=== PATIENT | male | born 1960 | race African-American/Black ===

== ENCOUNTER 2016-09-08 18:05 | Inpatient (IN) | payer OTHER ==
[~2016-09-08] VITALS: Ht 188 cm; Wt 109.1 kg
[2016-09-08] MEDS ORDERED: CLON0.2T PO (19:46)
[2016-09-08] MEDS ORDERED: ALLO100T30 PO (19:46)
[2016-09-08] MEDS ORDERED: LOSA100T6 PO (19:46)
[2016-09-08] MEDS ORDERED: PARO20TA4 PO (19:46)
[2016-09-08] MEDS ORDERED: AMLO10TA2 PO (19:46)
[2016-09-08] MEDS ORDERED: METO200T3 PO (19:46)
[2016-09-08] MEDS ORDERED: SPIR50TA2 PO (19:46)
[2016-09-08] MEDS ORDERED: SIMV20TA3 PO (19:46)
[2016-09-08] MEDS ORDERED: GLIP5TAB10 PO (19:46)
[2016-09-08] MEDS ORDERED: ASPI325T80 PO (19:46)
[2016-09-08] MEDS ORDERED: HYDR-3343 PO (19:46)
[2016-09-08] MEDS ORDERED: DOCUSATE CALCIUM 240 MG CAPSULE PO PRN (20:00)
[2016-09-08] MEDS ORDERED: ACETAMINOPHEN 650 MG/20.3 ML UDC PO PRN (20:00)
[2016-09-08] MEDS ORDERED: ALUMINUM/MAG/SIMETHICONE 30 ML UDC PO PRN (20:00)
[2016-09-08] MEDS: SODIUM CHLORIDE 0.9% 1,000 ML IV SCH (22:23)
[2016-09-08] MEDS: FAMOTIDINE 20 MG TABLET PO SCH (22:24)
[2016-09-08] MEDS: SIMVASTATIN 20 MG TABLET PO SCH (22:24)
[2016-09-08] MEDS: HEPARIN 5,000 UNITS/ML, 1ML SQ SCH (22:24)
[2016-09-08 22:50] VITALS: BP 153/97
[2016-09-09] VITALS (9 sets, daily range): BP systolic 150–202; BP diastolic 93–122
[2016-09-09 05:16] LABS: BLOOD UREA NITROGEN 21 mg/dL (7-18)
[2016-09-09] MEDS: LABETALOL 5MG/ML, 20ML IVPush PRN ×3 (05:32→22:21)
[2016-09-09] MEDS: HEPARIN 5,000 UNITS/ML, 1ML SQ SCH ×3 (06:11→22:26)
[2016-09-09] MEDS: SODIUM CHLORIDE 0.9% 1,000 ML IV SCH (06:12)
[2016-09-09] MEDS: ALLOPURINOL 100 MG TABLET PO SCH (07:56)
[2016-09-09] MEDS: METOPROLOL SUCCINATE 100 MG TAB.ER.24H PO SCH (07:56)
[2016-09-09] MEDS: PAROXETINE 20 MG TABLET PO SCH (07:57)
[2016-09-09] MEDS: FAMOTIDINE 20 MG TABLET PO SCH ×2 (07:57→20:01)
[2016-09-09] MEDS: ASPIRIN 325 MG TABLET EC PO SCH (07:57)
[2016-09-09] MEDS: AMLODIPINE 5 MG TABLET PO SCH (07:57)
[2016-09-09] MEDS: SPIRONOLACTONE 50 MG TABLET PO SCH (07:57)
[2016-09-09] MEDS: LOSARTAN 50MG TABLET PO SCH (07:57)
[2016-09-09] MEDS: ENALAPRILAT 1.25 MG/ML, 2ML IV PRN ×2 (13:05→17:47)
[2016-09-09] MEDS: POTASSIUM CHLORIDE 10 MEQ in SODIUM CHLORIDE 0.9% 1,000 ML IV SCH (15:30)
[2016-09-09] MEDS: SIMVASTATIN 20 MG TABLET PO SCH (20:02)
[2016-09-10] VITALS (10 sets, daily range): BP systolic 146–225; BP diastolic 92–120
[2016-09-10] MEDS: hydrALAzine 20 MG/ML, 1ML IV PRN (00:31)
[2016-09-10] MEDS: LABETALOL 5MG/ML, 20ML IVPush PRN ×2 (04:15→06:38)
[2016-09-10] MEDS: ENALAPRILAT 1.25 MG/ML, 2ML IV PRN (05:30)
[2016-09-10] MEDS: POTASSIUM CHLORIDE 10 MEQ in SODIUM CHLORIDE 0.9% 1,000 ML IV SCH ×2 (05:54→20:10)
[2016-09-10] MEDS: HEPARIN 5,000 UNITS/ML, 1ML SQ SCH ×3 (05:58→21:55)
[2016-09-10 06:01] LABS: BLOOD UREA NITROGEN 17 mg/dL (7-18)
[2016-09-10] MEDS ORDERED: methylPREDNISolone SOD SUCC 125 MG/2 ML IVPush SCH (07:30)
[2016-09-10] MEDS ORDERED: DIPHENHYDRAMINE 50 MG/ML, 1ML IVPush ONE (07:30)
[2016-09-10] MEDS: SPIRONOLACTONE 50 MG TABLET PO SCH (08:42)
[2016-09-10] MEDS: ASPIRIN 325 MG TABLET EC PO SCH (08:43)
[2016-09-10] MEDS: FAMOTIDINE 20 MG TABLET PO SCH ×2 (08:43→20:10)
[2016-09-10] MEDS: METOPROLOL SUCCINATE 100 MG TAB.ER.24H PO SCH (08:43)
[2016-09-10] MEDS: ALLOPURINOL 100 MG TABLET PO SCH (08:43)
[2016-09-10] MEDS: AMLODIPINE 5 MG TABLET PO SCH (08:43)
[2016-09-10] MEDS: LOSARTAN 50MG TABLET PO SCH (08:43)
[2016-09-10] MEDS: CETIRIZINE 10 MG TABLET PO SCH ×2 (08:44→20:11)
[2016-09-10] MEDS: PAROXETINE 20 MG TABLET PO SCH (08:46)
[2016-09-10] MEDS: SIMVASTATIN 20 MG TABLET PO SCH (20:10)
[2016-09-10] MEDS: INSULIN REGULAR 100 UNITS/ML, 3ML VIAL SQ-INSULIN SCH (21:56)
[2016-09-11] VITALS (8 sets, daily range): BP systolic 139–185; BP diastolic 79–105
[2016-09-11] MEDS: hydrALAzine 20 MG/ML, 1ML IV PRN (00:20)
[2016-09-11] MEDS: HEPARIN 5,000 UNITS/ML, 1ML SQ SCH ×3 (05:32→20:57)
[2016-09-11 06:50] LABS: BLOOD UREA NITROGEN 25 mg/dL (7-18)
[2016-09-11 06:54] LABS: ASPARTATE AMINO TRANSFERASE 11 U/L (15-37)
[2016-09-11] MEDS: INSULIN REGULAR 100 UNITS/ML, 3ML VIAL SQ-INSULIN SCH ×4 (07:00→20:57)
[2016-09-11] MEDS: ALLOPURINOL 100 MG TABLET PO SCH (08:20)
[2016-09-11] MEDS: CETIRIZINE 10 MG TABLET PO SCH ×2 (08:20→20:57)
[2016-09-11] MEDS: METOPROLOL SUCCINATE 100 MG TAB.ER.24H PO SCH (08:20)
[2016-09-11] MEDS: ASPIRIN 325 MG TABLET EC PO SCH (08:21)
[2016-09-11] MEDS: SPIRONOLACTONE 50 MG TABLET PO SCH (08:21)
[2016-09-11] MEDS: LOSARTAN 50MG TABLET PO SCH (08:21)
[2016-09-11] MEDS: AMLODIPINE 5 MG TABLET PO SCH (08:21)
[2016-09-11] MEDS: FAMOTIDINE 20 MG TABLET PO SCH ×2 (08:21→20:56)
[2016-09-11] MEDS: PAROXETINE 20 MG TABLET PO SCH (08:21)
[2016-09-11] MEDS: POTASSIUM CHLORIDE 10 MEQ in SODIUM CHLORIDE 0.9% 1,000 ML IV SCH (08:22)
[2016-09-11] MEDS: SIMVASTATIN 20 MG TABLET PO SCH (20:57)
[2016-09-12] MEDS: POTASSIUM CHLORIDE 10 MEQ in SODIUM CHLORIDE 0.9% 1,000 ML IV SCH (00:04)
[2016-09-12 00:30] VITALS: BP 166/96
[2016-09-12 04:07] VITALS: BP 165/95
[2016-09-12 05:50] LABS: BLOOD UREA NITROGEN 32 mg/dL (7-18)
[2016-09-12] MEDS: INSULIN REGULAR 100 UNITS/ML, 3ML VIAL SQ-INSULIN SCH (07:00)
[2016-09-12 07:04] VITALS: BP 170/101
[2016-09-12] MEDS: CETIRIZINE 10 MG TABLET PO SCH (09:00)
[2016-09-12] MEDS ORDERED: CLOPIDOGREL 75 MG TABLET PO SCH (09:00)
[2016-09-12] MEDS: PAROXETINE 20 MG TABLET PO SCH (09:42)
[2016-09-12] MEDS: SPIRONOLACTONE 50 MG TABLET PO SCH (09:42)
[2016-09-12] MEDS: FAMOTIDINE 20 MG TABLET PO SCH (09:42)
[2016-09-12] MEDS: LOSARTAN 50MG TABLET PO SCH (09:42)
[2016-09-12] MEDS: AMLODIPINE 5 MG TABLET PO SCH (09:42)
[2016-09-12] MEDS: ALLOPURINOL 100 MG TABLET PO SCH (09:43)
[2016-09-12] MEDS: METOPROLOL SUCCINATE 100 MG TAB.ER.24H PO SCH (09:43)
[2016-09-12] MEDS: HEPARIN 5,000 UNITS/ML, 1ML SQ SCH (09:44)
[2016-09-12] MEDS ORDERED: SIMV20TA3 PO (11:33)
[2016-09-12] MEDS ORDERED: PRED5TAB PO (11:38)
[2016-09-12] MEDS ORDERED: CLOP75TA22 PO (11:38)
== END 2016-09-12 12:02 | disposition home health service (06) | DRG 64 ==
LOC: ED 19:01 → SUATTDRO 19:36 → EDIP 19:53 → 4WST 21:22 → DCLOUNGE 09-12 11:21
PROVIDERS: ADMIT Family Medicine; ATTEND Family Medicine
DX: I63.9 Cerebral infarction, unspecified (principal); N17.0 Acute kidney failure with tubular necrosis; E78.5 Hyperlipidemia, unspecified; R47.1 Dysarthria and anarthria; F12.90 Cannabis use, unspecified, uncomplicated; E11.9 Type 2 diabetes mellitus without complications; T78.3XXA Angioneurotic edema, initial encounter; I65.02 Occlusion and stenosis of left vertebral artery; R13.10 Dysphagia, unspecified; Z66 Do not resuscitate; E86.0 Dehydration; Z86.73 Personal history of transient ischemic attack (TIA), and cerebral infarction without residual deficits; Z82.49 Family history of ischemic heart disease and other diseases of the circulatory system; Z88.8 Allergy status to other drugs, medicaments and biological substances; Z82.3 Family history of stroke; Z79.899 Other long term (current) drug therapy; Z79.84 Long term (current) use of oral hypoglycemic drugs; I12.9 Hypertensive chronic kidney disease with stage 1 through stage 4 chronic kidney disease, or unspecified chronic kidney disease; N18.3 Chronic kidney disease, stage 3 (moderate)
CPT/HCPCS: 36415; 70450; 70496; 70498; 70551; 76770; 80047; 80048; 80053; 80061; 82962; 83036; 85025; 85610; 85730; 87324; 93005; 93306; 99285; J1644; J1815; J3480; 92523-GN; J0360; J1200; J2930; J7030; J7512

== ENCOUNTER 2018-10-04 14:35 | Emergency (ER) | payer OTHER ==
[~2018-10-04] VITALS: Ht 188 cm; Wt 109.0 kg
[~2018-10-04 14:35] MED LIST: ALLO100T30 PO; AMLO10TA8 PO; ASPI325T80 PO; CLON0.2T PO; CLOP75TA52 PO; GLIP5TAB10 PO; HYDR-3343 PO; LOSA100T14 PO; METO200T47 PO; PARO20TA4 PO; PRED5TAB PO; SIMV20TA3 PO; SPIR50TA4 PO
--- NOTE | 2018-10-04 14:54 | NUR ---
MD IS AT THE BEDSIDE TO ASSESS
[2018-10-04] MEDS ORDERED: SODIUM CHLORIDE 0.9% 1,000ML IVBOLUS ONE (15:00)
--- NOTE | 2018-10-04 15:17 | NUR ---
lexi (rn) is assuming care of this pt while i have a lunch break. sbar report was exchanged at the bedside.
[2018-10-04 15:20] LABS: BASOPHILS # (AUTO) 0.02 x10^3/uL (0-0.1); BASOPHILS % (AUTO) 0 % (0-1); EOSINOPHILS # (AUTO) 0.02 x10^3/uL (0-0.4); EOSINOPHILS % (AUTO) 0 % (1-7); LYMPHOCYTES # (AUTO) 0.64 x10^3/uL (1-3.4); LYMPHOCYTES % (AUTO) 10 % (22-44); MD NO; MEAN CORPUSCULAR HEMOGLOBIN 27.6 pg (27.5-34.5); MEAN CORPUSCULAR HGB CONC 31.6 g/dL (33.2-36.2); MEAN CORPUSCULAR VOLUME 87.6 fL (81-97); MONOCYTES # (AUTO) 0.37 x10^3/uL (0.2-0.8); MONOCYTES % (AUTO) 6 % (2-9); NEUTROPHILS # (AUTO) 5.11 x10^3/uL (1.8-6.8); NEUTROPHILS % (AUTO) 83 % (42-75); PLATELET COUNT 151 x10^3/uL (130-400); RED BLOOD COUNT 5.09 x10^6/uL (4.38-5.82); RED CELL DISTRIBUTION WIDTH 15.1 % (9.4-14.8)
[2018-10-04 15:30] LABS: ALBUMIN 3.8 g/dL (3.4-5.0); ANION GAP 7 mmol/L (5-15); CALCIUM 9.3 mg/dL (8.5-10.1); CHLORIDE 113 mmol/L (98-107); CREATININE 2.45 mg/dL (0.7-1.3)
[2018-10-04 15:34] LABS: TROPONIN I < 0.015 ng/mL (0.000-0.045)
--- NOTE | 2018-10-04 16:54 | NUR ---
Patient given discharge instructions and they have confirmed that they understand the instructions. Patient ambulatory with steady gait. Pt left with all personal belongings, d/c paperwork, and encouraged to return to ED if symptoms worse or conditions change.
[2018-10-04 16:55] VITALS: BP 120/89
== END 2018-10-04 16:57 | disposition home or self-care (01) ==
LOC: ED 15:33
DX: E86.0 Dehydration (principal); R55 Syncope and collapse
CPT/HCPCS: 36415; 70450; 71045; 80048; 82040; 84484; 85025; 93005; 99284; J7030